=== PATIENT | male | born 1960 | race African-American/Black ===

== ENCOUNTER 2016-11-22 08:14 | Emergency (ER) | payer SELFPAY ==
[~2016-11-22] VITALS: Ht 188 cm; Wt 113.0 kg
[2016-11-22] MEDS ORDERED: KETOROLAC 60MG/2ML VIAL IM ONE (09:00)
[2016-11-22 09:32] VITALS: BP 150/101
== END 2016-11-22 10:45 | disposition left against medical advice (07) ==
LOC: ER 08:58
DX: J02.9 Acute pharyngitis, unspecified (principal); F17.200 Nicotine dependence, unspecified, uncomplicated; I10 Essential (primary) hypertension
CPT/HCPCS: 96372; 99283; J1885

== ENCOUNTER 2016-12-17 08:29 | Emergency (ER) | payer MEDICAID ==
[~2016-12-17] VITALS: Ht 188 cm; Wt 98.0 kg
[2016-12-17] MEDS ORDERED: TRAMADOL 50MG TABLET PO ONE (09:45)
[2016-12-17] MEDS ORDERED: KETOROLAC 30MG/ML VIAL IV ONE (09:45)
[2016-12-17 09:59] LABS: EOSINOPHILS % 0.3 % (0.0-5.0); HEMATOCRIT. 42.5 % (42.0-52.0); HEMOGLOBIN. 14.4 g/dL (14.0-18.0); LYMPHOCYTES % 21.5 % (20.0-50.0); MEAN CORPUSCULAR HEMOGLOBIN 27.8 pg (28.0-32.0); MEAN CORPUSCULAR VOLUME 81.9 fL (80.0-94.0); MEAN PLATELET VOLUME 8.1 fl (7.4-10.4); NEUTROPHILS % 72.2 % (40.0-76.0); PLATELET 282 x1000/uL (130-400); RED BLOOD CELL COUNT 5.19 mill/uL (4.7-6.1); RED CELL DISTRIBUTION WIDTH 13.5 % (11.6-14.6)
[2016-12-17 10:00] LABS: CLARITY URINE CLEAR (CLEAR); COLOR URINE YELLOW (YELLOW); GLUCOSE URINE NEGATIVE (NEGATIVE); KETONES URINE NEGATIVE (NEGATIVE); LEUKOCYTE ESTERASE URINE NEGATIVE (NEGATIVE); NITRITE URINE NEGATIVE (NEGATIVE); OCCULT BLOOD URINE NEGATIVE (NEGATIVE); PROTEIN URINE NEGATIVE (NEGATIVE); SPECIFIC GRAVITY URINE 1.009 (1.005-1.030); UROBILINOGEN URINE 0.2 E.U./dL (0.2-1.0)
[2016-12-17 10:07] LABS: PROTHROMBIN TIME 10.4 sec
[2016-12-17 10:13] VITALS: BP 135/79
[2016-12-17 10:15] LABS: *AMPHETAMINES SCREEN URINE NEGATIVE (NEGATIVE); *BARBITURATES SCREEN URINE NEGATIVE (NEGATIVE); *BENZODIAZEPINES SCREEN URINE NEGATIVE (NEGATIVE); *COCAINE SCREEN URINE PRESUMTIVE POSITIVE (NEGATIVE); CANNABINOID URINE SCREEN NEGATIVE (NEGATIVE); METHADONE URINE SCREEN NEGATIVE (NEGATIVE); OPIATES URINE SCREEN NEGATIVE (NEGATIVE); PHENCYCLIDINE URINE SCREEN NEGATIVE (NEGATIVE)
[2016-12-17 10:16] LABS: CARBON DIOXIDE 23 mEq/L (21-32); CHLORIDE 104 mEq/L (98-107); ETHANOL BLOOD 80 mg/dL
== END 2016-12-17 10:47 | disposition home or self-care (01) ==
LOC: ER 08:55
DX: M47.9 Spondylosis, unspecified (principal); R53.1 Weakness; F17.200 Nicotine dependence, unspecified, uncomplicated; I10 Essential (primary) hypertension; E78.00 Pure hypercholesterolemia, unspecified; E11.69 Type 2 diabetes mellitus with other specified complication
CPT/HCPCS: 36415; 71010; 72100; 80053; 80305; 80307; 80329; 81003; 83690; 85025; 85610; 96374; 99285; G0482; J1885; J7030; Z7610

== ENCOUNTER 2017-08-03 08:47 | Emergency (ER) | payer MEDICAID, OTHER ==
[~2017-08-03] VITALS: Ht 185.4 cm; Wt 89.0 kg
[2017-08-03 10:25] VITALS: BP 153/100
== END 2017-08-03 11:45 | disposition home or self-care (01) ==
LOC: ER 09:27
DX: B34.9 Viral infection, unspecified (principal); E11.9 Type 2 diabetes mellitus without complications; E78.00 Pure hypercholesterolemia, unspecified; I10 Essential (primary) hypertension; F17.210 Nicotine dependence, cigarettes, uncomplicated
CPT/HCPCS: 71045; 99283

== ENCOUNTER 2022-07-06 00:42 | Inpatient (IN) | payer MEDICAID ==
[~2022-07-06] VITALS: Ht 188 cm; Wt 85.0 kg
[2022-07-06] MEDS ORDERED: BENZONATATE 200MG CAPSULE PO ONE (01:45)
[2022-07-06] MEDS ORDERED: LABETALOL 5MG/ML SYR 20 MG/4 ML SYRINGE IV ONE ×2 (01:45→03:00)
[2022-07-06] MEDS ORDERED: BENZONATATE 100MG CAPSULE PO NR (02:00)
[2022-07-06 02:05] LABS: BASOPHILS % 1.1 % (0.0-2.0); HEMATOCRIT. 37.1 % (42.0-52.0); HEMOGLOBIN. 12.3 g/dL (14.0-18.0); LYMPHOCYTES % 23.1 % (20.0-50.0); MEAN CORPUSCULAR HEMOGLOBIN 27.8 pg (28.0-32.0); MEAN CORPUSCULAR VOLUME 83.8 fL (80.0-94.0); MEAN PLATELET VOLUME 8.4 fl (7.4-10.4); MONOCYTES % 8.8 % (2.0-8.0); PLATELET 340 x1000/uL (130-400); RED BLOOD CELL COUNT 4.43 mill/uL (4.7-6.1); RED CELL DISTRIBUTION WIDTH 14.4 % (11.6-14.6)
[2022-07-06 02:08] LABS: CHLORIDE 109 mEq/L (98-107)
[2022-07-06] MEDS ORDERED: HYDROCODONE/ACETAMINOPHEN 5/325MG TABLET PO ONE (03:30)
[2022-07-06] MEDS ORDERED: NICARDIPINE 100 MG in SODIUM CHLORIDE 0.9% 60 ML IV NR (05:00)
[2022-07-06] MEDS ORDERED: DOCUSATE SODIUM 100MG CAPSULE PO PRN (07:30)
[2022-07-06] MEDS ORDERED: ACETAMINOPHEN 325MG TABLET PO PRN (07:30)
[2022-07-06] MEDS ORDERED: ONDANSETRON HCL 4MG/2ML INJ IV PRN (07:30)
[2022-07-06] MEDS ORDERED: DEXTROSE 50% WATER 50ML SYRINGE IV PRN (07:30)
[2022-07-06] MEDS ORDERED: IPRATROPIUM/ALBUTEROL 0.5-3(2.5)MG/3ML NEB HHN PRN (07:30)
[2022-07-06] MEDS ORDERED: HYDROCODONE/ACETAMINOPHEN 5/325MG TABLET PO PRN (07:30)
[2022-07-06] MEDS ORDERED: NA PHOS,M-B/NA PHOS,DI-BA ENEMA 118ML PR PRN (07:30)
[2022-07-06] MEDS ORDERED: MAGNESIUM/ALUMINUM HYDROXIDE/SIMETHICONE 30ML UDC PO PRN (07:30)
[2022-07-06] MEDS ORDERED: NALOXONE HCL 0.4MG/ML VIAL IV PRN (08:00)
[2022-07-06 09:20] LABS: CLARITY URINE CLEAR (CLEAR); COLOR URINE YELLOW (YELLOW); KETONES URINE NEGATIVE (NEGATIVE); LEUKOCYTE ESTERASE URINE NEGATIVE (NEGATIVE); NITRITE URINE NEGATIVE (NEGATIVE); OCCULT BLOOD URINE NEGATIVE (NEGATIVE); PH URINE 7.5 (4.5-8.0); PROTEIN URINE 2+ (NEGATIVE); SPECIFIC GRAVITY URINE 1.012 (1.005-1.030); UROBILINOGEN URINE 0.2 E.U./dL (0.2-1.0)
[2022-07-06 09:39] LABS: *AMPHETAMINES SCREEN URINE NEGATIVE (NEGATIVE); *BARBITURATES SCREEN URINE NEGATIVE (NEGATIVE); *BENZODIAZEPINES SCREEN URINE NEGATIVE (NEGATIVE); *COCAINE SCREEN URINE NEGATIVE (NEGATIVE); CANNABINOID URINE SCREEN NEGATIVE (NEGATIVE); METHADONE URINE SCREEN NEGATIVE (NEGATIVE); OPIATES URINE SCREEN NEGATIVE (NEGATIVE); PHENCYCLIDINE URINE SCREEN NEGATIVE (NEGATIVE)
[2022-07-06] MEDS: FAMOTIDINE 20MG TABLET PO SCH (10:19)
[2022-07-06] MEDS: ENOXAPARIN 40MG/0.4ML SYR SUBCUT SCH (10:19)
[2022-07-06] MEDS ORDERED: BLOOD SUGAR DIAGNOSTIC STRIP TEST SCH (11:30)
[2022-07-06] MEDS ORDERED: INSULIN LISPRO 100 UNITS/ML SUBCUT SCH (12:00)
[2022-07-06 12:23] LABS: T4 FREE 0.92 ng/dL (0.76-1.46)
[2022-07-06] MEDS ORDERED: FURO40TA5 PO (12:33)
[2022-07-06] MEDS ORDERED: AMLO10TA80 PO (12:33)
[2022-07-06] MEDS ORDERED: ATOR40TA70 PO (12:33)
[2022-07-06] MEDS ORDERED: LOSA100T32 PO (12:33)
[2022-07-06] MEDS ORDERED: HYDR100T31 PO (12:33)
[2022-07-06 12:51] LABS: VITAMIN B12 SERUM 494 pg/mL (211-911)
[2022-07-06] MEDS: FOLIC ACID 1MG TABLET PO SCH (13:34)
[2022-07-06] MEDS: HYDRALAZINE HCL 100MG TABLET PO SCH ×2 (13:34→17:21)
[2022-07-06] MEDS: CLONIDINE 0.1MG TABLET PO PRN ×2 (13:35→21:13)
[2022-07-06] MEDS: FUROSEMIDE 40MG/4ML VIAL IVP SCH (13:40)
[2022-07-06] MEDS ORDERED: PIPERACILLIN/TAZ 3.375G PREMIX 50 ML IV SCH (14:00)
[2022-07-06 15:35] VITALS: BP 121/91
[2022-07-06 16:00] VITALS: BP 121/91
[2022-07-06 16:08] LABS: CREATINE KINASE 91 IU/L (39-308)
[2022-07-06] MEDS: THIAMINE HCL 100MG TABLET PO SCH (17:14)
[2022-07-06] MEDS: AMLODIPINE 10MG TABLET PO SCH (17:15)
[2022-07-06] MEDS: GUAIFENESIN 200MG/10ML SUGAR FREE UDC PO PRN ×2 (17:53→21:10)
[2022-07-06 20:00] VITALS: BP 150/114
[2022-07-06] MEDS: ATORVASTATIN CALCIUM 40MG TABLET PO SCH (21:05)
[2022-07-06] MEDS: ACETAMINOPHEN 325MG TABLET PO PRN (21:07)
[2022-07-06] MEDS: PIPERACILLIN/TAZ 3.375G PREMIX 50 ML IV SCH ×2 (21:10→23:00)
[2022-07-06 23:51] LABS: CREATINE KINASE 71 IU/L (39-308); CREATINE KINASE MB FRACTION < 1.0 ng/mL (0.5-3.6)
[2022-07-07] VITALS: BP 147/87
[2022-07-07 04:00] VITALS: BP 151/102
[2022-07-07] MEDS: PIPERACILLIN/TAZOBACTAM 3.375G in DEXT 5% WATER 50ML IV SCH ×3 (06:04→22:03)
[2022-07-07 06:23] LABS: EOSINOPHILS % 3.2 % (0.0-5.0); HEMATOCRIT. 36.7 % (42.0-52.0); HEMOGLOBIN. 12.1 g/dL (14.0-18.0); LYMPHOCYTES % 25.5 % (20.0-50.0); MEAN CORPUSCULAR HEMOGLOBIN 27.7 pg (28.0-32.0); MEAN PLATELET VOLUME 8.4 fl (7.4-10.4); NEUTROPHILS % 58.3 % (40.0-76.0); PLATELET 339 x1000/uL (130-400); RED BLOOD CELL COUNT 4.37 mill/uL (4.7-6.1); RED CELL DISTRIBUTION WIDTH 14.4 % (11.6-14.6)
[2022-07-07] MEDS: CLONIDINE 0.1MG TABLET PO PRN (06:43)
[2022-07-07] MEDS: GUAIFENESIN 200MG/10ML SUGAR FREE UDC PO PRN ×3 (06:45→20:56)
[2022-07-07 08:00] VITALS: BP 152/125
[2022-07-07] MEDS: FUROSEMIDE 40MG/4ML VIAL IVP SCH (08:37)
[2022-07-07] MEDS: FOLIC ACID 1MG TABLET PO SCH (08:37)
[2022-07-07] MEDS: ENOXAPARIN 40MG/0.4ML SYR SUBCUT SCH (08:37)
[2022-07-07] MEDS: AMLODIPINE 10MG TABLET PO SCH (08:37)
[2022-07-07] MEDS: FAMOTIDINE 20MG TABLET PO SCH (08:37)
[2022-07-07] MEDS: THIAMINE HCL 100MG TABLET PO SCH (08:37)
[2022-07-07] MEDS: HYDRALAZINE HCL 100MG TABLET PO SCH ×3 (08:38→17:00)
[2022-07-07] MEDS: LOSARTAN POTASSIUM 100 MG TABLET PO SCH (08:39)
[2022-07-07 08:48] LABS: CHLORIDE 107 mEq/L (98-107)
[2022-07-07 08:56] LABS: PHOSPHORUS 4.5 mg/dL (2.5-4.9)
[2022-07-07] MEDS: ACETAMINOPHEN 325MG TABLET PO PRN (11:02)
[2022-07-07] MEDS: BENZONATATE 100MG CAPSULE PO SCH ×3 (11:02→22:04)
[2022-07-07 12:00] VITALS: BP 130/91
[2022-07-07] MEDS ORDERED: DEXTL PO (14:30)
[2022-07-07] MEDS ORDERED: ASPI-1160 PO (14:30)
[2022-07-07] MEDS: ASPIRIN 81MG TABLET PO SCH (14:30)
[2022-07-07] MEDS ORDERED: LOSA100T3 PO (14:30)
[2022-07-07] MEDS ORDERED: AMLO10TA80 PO (14:30)
[2022-07-07] MEDS ORDERED: METO25TA6 PO (14:30)
[2022-07-07] MEDS ORDERED: LIP40 PO (14:30)
[2022-07-07] MEDS ORDERED: HYDR100T26 PO (14:30)
[2022-07-07 15:58] VITALS: BP 109/62
[2022-07-07 20:00] VITALS: BP 128/64
[2022-07-07] MEDS: METOPROLOL TARTRATE 25MG TABLET PO SCH (21:00)
[2022-07-07] MEDS: ATORVASTATIN CALCIUM 40MG TABLET PO SCH (21:00)
[2022-07-08] VITALS: BP 117/74
[2022-07-08 04:00] VITALS: BP 127/76
[2022-07-08 05:29] LABS: BASOPHILS % 1.1 % (0.0-2.0); EOSINOPHILS % 2.8 % (0.0-5.0); HEMOGLOBIN. 12.2 g/dL (14.0-18.0); LYMPHOCYTES % 35.1 % (20.0-50.0); MEAN CORPUSCULAR HEMOGLOBIN 27.5 pg (28.0-32.0); MEAN CORPUSCULAR VOLUME 83.4 fL (80.0-94.0); MEAN PLATELET VOLUME 8.4 fl (7.4-10.4); MONOCYTES % 14.1 % (2.0-8.0); NEUTROPHILS % 46.9 % (40.0-76.0); PLATELET 369 x1000/uL (130-400); RED BLOOD CELL COUNT 4.43 mill/uL (4.7-6.1); RED CELL DISTRIBUTION WIDTH 14.3 % (11.6-14.6)
[2022-07-08] MEDS: BENZONATATE 100MG CAPSULE PO SCH (06:21)
[2022-07-08] MEDS: PIPERACILLIN/TAZOBACTAM 3.375G in DEXT 5% WATER 50ML IV SCH (06:21)
[2022-07-08] MEDS: GUAIFENESIN 200MG/10ML SUGAR FREE UDC PO PRN (06:23)
[2022-07-08 08:00] VITALS: BP 144/88
[2022-07-08 08:28] LABS: CHLORIDE 105 mEq/L (98-107)
[2022-07-08] MEDS: HYDRALAZINE HCL 100MG TABLET PO SCH ×2 (08:43→12:18)
[2022-07-08] MEDS: METOPROLOL TARTRATE 25MG TABLET PO SCH (08:43)
[2022-07-08] MEDS: ASPIRIN 81MG TABLET PO SCH (08:45)
[2022-07-08] MEDS: FAMOTIDINE 20MG TABLET PO SCH (08:45)
[2022-07-08] MEDS: AMLODIPINE 10MG TABLET PO SCH (08:45)
[2022-07-08] MEDS: THIAMINE HCL 100MG TABLET PO SCH (08:45)
[2022-07-08] MEDS: LOSARTAN POTASSIUM 100 MG TABLET PO SCH (08:45)
[2022-07-08] MEDS: FOLIC ACID 1MG TABLET PO SCH (08:45)
[2022-07-08] MEDS: ENOXAPARIN 40MG/0.4ML SYR SUBCUT SCH (08:46)
[2022-07-08 12:00] VITALS: BP 122/63
[2022-07-08 12:39] VITALS: BP 135/80
[2022-07-09] MEDS ORDERED: ENOXAPARIN 30MG/0.3ML SYR SUBCUT SCH (09:00)
== END 2022-07-08 14:00 | disposition home or self-care (01) | DRG 199 ==
LOC: ER 00:42 → MICUSO 04:53 → 3WST 15:32
PROVIDERS: ADMIT Internal Medicine; ATTEND Internal Medicine
DX: I16.1 Hypertensive emergency (principal); E11.22 Type 2 diabetes mellitus with diabetic chronic kidney disease; D63.1 Anemia in chronic kidney disease; I50.22 Chronic systolic (congestive) heart failure; I13.0 Hypertensive heart and chronic kidney disease with heart failure and stage 1 through stage 4 chronic kidney disease, or unspecified chronic kidney disease; E11.65 Type 2 diabetes mellitus with hyperglycemia; E78.00 Pure hypercholesterolemia, unspecified; N18.9 Chronic kidney disease, unspecified; R32 Unspecified urinary incontinence; Z20.822 Contact with and (suspected) exposure to COVID-19; R80.9 Proteinuria, unspecified; E78.5 Hyperlipidemia, unspecified; F17.210 Nicotine dependence, cigarettes, uncomplicated; Z87.01 Personal history of pneumonia (recurrent); Z91.14 Patient's other noncompliance with medication regimen; Z59.00 Homelessness unspecified
CPT/HCPCS: 36415; 71045; 76770; 80053; 80061; 80305; 80320; 81003; 82550; 82553; 82607; 82746; 82962; 83036; 83540; 83550; 83605; 83735; 83880; 84100; 84439; 84443; 84484; 85025; 85379; 87426; 93005; 93306; 93970; 99291; J1650; J1940; J2543; J3490; J7050; J7060; G0480